=== PATIENT | male | born 1970 | race African-American/Black ===

== ENCOUNTER → 2017-03-26 | Day surgery (SDC) | payer BC ==
[~2017-03-26] MED LIST: BUPIVACAINE/EPINEPHRINE 0.5% PF 30 ML VIAL ONE; DOXY150C PO; LACTATED RINGER'S 1000 ML INJ 1,000 ML ONE; MIDAZOLAM HCL 2 MG/2 ML VIAL ONE; ONDANSETRON HCL 4 MG/2 ML VIAL IV PUSH ONE; PRED20 PO; PROPOFOL 200 MG/20 ML AMP IV ONE; VENTAER INH; Z.0.NO CURRENT MEDS; ceFAZolin 2 GM PREMIX 50 ML ONE
--- NOTE | 2017-03-27 05:48 | TN ---
cc: LACI HINOJOSA DATE OF SURGERY 03/26/2017 PREOPERATIVE DIAGNOSIS Right thigh soft tissue mass. POSTOPERATIVE DIAGNOSIS Right thigh soft tissue mass. PROCEDURE Excision of right thigh soft tissue mass, 12 cm. His ANESTHESIA General and local anesthetic. ATTENDING SURGEON MD Gabrielle ADMINISTRATIVE MANAGER None. BLOOD LOSS Less than 10 cc. FINDINGS Soft tissue mass in the subcutaneous tissue consistent with benign lipoma. 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 He has no past history of sarcoma or any other malignancy. I discussed with the patient about the risks, benefits and alternatives to excision of the mass and he wished to undergo the procedure. PROCEDURE The patient was taken to the operating room at [facility] and placed under general anesthesia. The patient's right thigh and leg were prepped and draped in sterile fashion. Time-out was performed. We instilled the area of the planned resection with 0.25% Marcaine. We excised an elliptical portion of skin over the mass in order to remove the redundant skin with a 15 blade scalpel. We used Bovie electrocautery to dissect around the well-circumscribed soft tissue mass 360 degrees. This was traveled down to close to but not to deep fascia of the thigh where we removed some normal fatty tissue at the base in order to ensure removal of the total mass. We grossly had all abnormal-looking fatty tissue. He had excellent hemostasis with the Bovie electrocautery. We then our attention towards closure. We closed the subcutaneous tissue with deep dermal 3-0 Vicryl interrupted sutures. We closed the skin with 4-0 Monocryl and Dermabond. The mass was passed off for permanent processing. This had gross negative margins and all grossly normal fat was left behind. We placed Dermabond on the skin. The patient was discontinued from anesthesia and taken to the PACU in stable condition. The patient tolerated the procedure well. No apparent complications. All counts were correct and I was present and scrubbed for the entire procedure. MD HERACLIO Orosco/GREYSON /6:16 PM /5:44 AM
== END | disposition home or self-care (01) ==
LOC: ESDC 09:40
PROVIDERS: ATTEND Surgery
DX: D17.23 Benign lipomatous neoplasm of skin and subcutaneous tissue of right leg (principal)
CPT/HCPCS: 00400; 27337; 88304; J0690; J2250; J2405; J3010; J7120; 88305